=== PATIENT | female | born 1950 | race Caucasian/White ===

== ENCOUNTER 2019-02-03 09:50 | Emergency (ER) | payer OTHER ==
--- NOTE | 2019-02-03 09:52 | PDOC ---
History of Present Illness - General Chief Complaint: Respiratory Stated Complaint: COUGH Time Seen by Provider: 02/03/19 09:52 History Source: Patient Exam Limitations: No Limitations - History of Present Illness Initial Comments: 02/03/19 10:11 HPI 68 YOF with h/o HTN, HLD, COPD presenting with productive cough and congestion x 1 week, worsening over the past 3 days with shortness of breath worse with coughing episodes. +clear sputum; has not tried any medications for the cough. She does have symbicort for maintenance of COPD, but not taking. Unsure if she has albuterol rescue inhaler or been told how to utilize. She was at PMD office, Dr Wu 3 days ago on Sunday, was evaluated and deemed well; following visit she developed progressive respiratory symptoms. Today she started experiencing difficulty catching her breath and subsequent anxiety; but no cp or syncope, dizziness. Denies fever, chills, chest pain, palpitations, dizziness, weakness, N, V, D, abdominal pain, bladder and bowel problems, leg swelling, leg pain, reash. No sick contacts or travel. No known allergens or environmental exposures. No new changes in medications. No suspicious food intake Allergies: None Past Medical History: HTN, HLD, COPD Social history: Lives with family. +tobacco use ppd. No ETOH or drug use. Surgical history: noncontributory Meds: as documented in EMR PMD: Dr Conner Wu Past History - Past Medical History Allergies/Adverse Reactions: Allergies Allergy/AdvReac Type Severity Reaction Status Date / Time No Known Allergies Allergy Verified 02/03/19 09:51 Home Medications: Ambulatory Orders Albuterol 0.083% Nebulizer Evita [Ventolin 0.083% Nebulizer Soln -] 1 neb NEB Q4H PRN #50 vial 02/03/19 Albuterol Sulfate Inhaler - [Ventolin HFA Inhaler -] 2 inh PO Q4H PRN #1 inh Albuterol Sulfate Inhaler - [Ventolin Hfa Inhaler -] 1 - 2 inh PO PRN PRN Budesonide/Formeterol Fumarate [SYMBICORT 160/4.5mcg -] 1 inh IH PRN PRN Losartan Potassium 50 mg PO DAILY 02/03/19 Metoprolol Tartrate 50 mg PO DAILY 02/03/19 Nebulizer [Aeroeclipse II] 1 each ONCE #1 each 02/03/19 Simvastatin 10 mg PO DAILY 02/03/19 predniSONE [Deltasone -] 40 mg PO DAILY 4 Days #8 tablet 02/03/19 Review of Systems - Review of Systems Able to Perform ROS?: Yes Comments:: 02/03/19 10:11 Review of systems Constitutional: no fevers or chills. No sweats or weakness. HEENT: no headache or dizziness. No visual/hearing disturbances. No sore throat or ear pain. No neck pain. +nasal congestion. CVS: no cp or syncope. No palpitations. Resp: +cough, sob, +wheezing. no hemoptysis. Gastrointestinal: no abdominal pain, nausea or vomiting. MUSCULOSKELETAL: No joint pain and swelling. No neck or back pain. Extrem: no leg swelling or pain SKIN: no redness or skin changes, no discharge, no rash. No wounds. Hematologic: no easy bruising/bleeding. NEUROLOGIC: No headache, dizziness, LOC or altered mental status. No weakness, numbness or tingling. Psych: +anxiety Allergic/Immunologic: no allergies All other systems reviewed and negative, or as documented in HPI. 02/03/19 11:25 *Physical Exam - Physical Exam Comments: 02/03/19 10:11 Physical exam: General: Well appearing, awake and alert, NAD. thin appearing. HEENT: NCAT, PERRL, EOMI, clear conjunctiva, anicteric, dry mucus membranes, clear oropharynx, no oral lesions.. Neck: neck supple, FROM Resp: +lip pursing, prolonged expiratory phase, bilaterally decreased breath sounds diffusely with scant and faint expiratory wheezing. CVS: +tachycardia, no murmurs, 2+ peripheral pulses throughout, no peripheral edema Abdomen: soft, NTND, no peritoneal signs. Back: nontender, normal inspection and ROM MSK: no edema, RO x4, ROM intact. No clubbing or cyanosis. normal bulk and tone. Neuro: alert Extrem: no calf tenderness, no leg edema. Skin: warm and well perfused, cap refill <2 sec, normal color Heart Score/ECG Review #1 ECG reviewed & interpreted by me at: 09:55 General ECG Interpretation: Sinus Rhythm, Normal Rate, Normal Intervals Compared to previous ECG there are: Previous ECG unavail 02/03/19 10:51 EKG normal sinus rhythm at 92 bpm, no interval abnormalities, LAD, narrow QRS, ST and T wave segments and morphology normal. Nonspecific T wave abnormalities ED Treatment Course - RADIOLOGY Chest X-Ray Result: No Infiltrates Radiograph Interpretation: 02/03/19 10:46 CXR (2 view): no acute abnormality: no infiltrates, bones appear intact and structures normal alignment, cardiac silhouette within normal limits. no free air under diaphragm, no pneumothorax. hyper inflated lungs Medical Decision Making - Medical Decision Making 02/03/19 10:11 See HPI for details Vital signs reviewed, wnl. no fever, borderline sats 91% on RA, but has COPD with exacerbation, can have 88-92% on RA HR 100, no fever or systemic toxicity, anxious and with copd exac. ddx copd exac, pulm edema, viral syndrome, bronchitis, pneumonia not flu season currently clinically does not appear as PE, no risk factors to suggest etiology, no leg swelling/calf tenderness, no hemoptysis or known malignancy.. alternative etiology is more likely - copd vs bronchitis, defer testing and workup at this time. unlikely cardiac, no cp. no diaphoresis or syncope EKG normal sinus rhythm at 92 bpm, no interval abnormalities, LAD, narrow QRS, ST and T wave segments and morphology normal. Nonspecific T wave abnormalities ED course - duonebs x3, prednisone. feels much improved; repeat VS after full treatments normalized, with bp downtrending, no significant hypoxia as she has copd and allowed for 88-92%, breathing comfortably, lungs with scant wheezing, but improved air movement. no tachypnea. speaking clear sentences.. no cp or sob on reeval. - CXR clear, hyperinflated, no effusion or infiltrate - no abx indicated at this time, likely viral etiology of bronchitis smoking cessation advised supportive care, albuterol use q4-6 hr as needed, hydration and avoid triggers Pt informed of my clinical impression, treatment recommendations and disposition plan. All questions answered to patient's satisfaction and expressed understanding and comfort with this. Reasons for returning to the ED sooner discussed including new or persistent/worsening symptoms with the patient otherwise, follow up with primary care physician. At the time of discharge, the patient is alert, clinically improved, tolerating po and verbalizes understanding of instructions, satisfied with the care received and felt comfortable with the plan. Patient does not suffer from an acute life- threatening medical condition at this time and is safe for outpatient follow- up. 02/03/19 10:47 02/03/19 10:51 02/03/19 11:20 02/03/19 11:25 *DC/Admit/Observation/Transfer Diagnosis at time of Disposition: COPD exacerbation, Acute bronchitis - Discharge Dispostion Disposition: HOME Condition at time of disposition: Good Decision to Admit order: No - Prescriptions Prescriptions: Albuterol 0.083% Nebulizer Evita [Ventolin 0.083% Nebulizer Soln -] 1 neb NEB Q4H PRN #50 vial PRN Reason: cough, wheezing Albuterol Sulfate Inhaler - [Ventolin HFA Inhaler -] 2 inh PO Q4H PRN #1 inh PRN Reason: Cough Nebulizer [Aeroeclipse II] 1 each MC ONCE #1 each predniSONE [Deltasone -] 40 mg PO DAILY 4 Days #8 tablet - Referrals Referrals: Cathy Wu MD [Staff Physician] - - Patient Instructions Printed Discharge Instructions: DI for Chronic Obstructive Pulmonary Disease, DI for Acute Bronchitis Additional Instructions: salt water gargles and warm lemon tea is appropriate as well for soothing qualities for sore throat/cough. minimize spread of infection given contagious nature, and cover your mouth and wash your hands adequately with soap and water. Stay well hydrated and rest. Cool air - walk around outdoors in the evening. May also try hot shower steam. This can alleviate the congestion and cough. smoking cessation advised supportive care, hydration and avoid triggers may also use over the counter mucinex for breaking up the mucus plugging. May use the albuterol inhaler every 4-6 hours as needed for cough and breathing to clear up your airways. you will also be prescribed a nebulizer machine with the solutions to be used similarly every 4 to 6 hours as needed for cough/wheezing, choose one or the other. Return precautions include respiratory distress, difficulty breathing, cyanosis (turning blue), chest pain, lethargy, confusion, dehydration, high fevers or pain. - Post Discharge Activity
[2019-02-03 10:03] VITALS: TEMP 98.2; BMI 19.3
[2019-02-03] MEDS ORDERED: predniSONE 20 MG TABLET (UD) PO ONE (10:04)
[2019-02-03] MEDS ORDERED: predniSONE 10 MG TABLET (UD) ONE (10:08)
[2019-02-03] MEDS ORDERED: predniSONE 20 MG TABLET (UD) ONE (10:08)
[2019-02-03] MEDS ORDERED: ALBUTEROL SO4 2.5/IPRATROPIUM 0.5 INH SOL 3 ML VIAL.NEB. NEB ONE (10:08)
[2019-02-03] MEDS: ALBUTEROL SO4 2.5/IPRATROPIUM 0.5 INH SOL 3 ML VIAL.NEB. NEB SCH ×4 (10:13→10:52)
[2019-02-03 11:18] VITALS: BP 156/100; PULSE 101
--- NOTE | 2019-02-04 12:14 | EKG ---
Test Reason : Blood Pressure : / mmHG Vent. Rate : 092 BPM Atrial Rate : 092 BPM P-R Int : 186 ms QRS Dur : 106 ms QT Int : 362 ms P-R-T Axes : 086 -76 091 degrees QTc Int : 447 ms NORMAL SINUS RHYTHM BIATRIAL ENLARGEMENT LEFT AXIS DEVIATION ANTEROSEPTAL INFARCT , AGE UNDETERMINED ABNORMAL ECG NO PREVIOUS ECGS AVAILABLE Confirmed by MD Zan, Joe ([id number]) on 02/04/2019 12:13:38 PM Referred By: DIOR PRIETO Confirmed By:Joe Zuluaga MD
== END 2019-02-03 11:41 | disposition home or self-care (01) ==
LOC: FER 09:50
PROC: 3E0F7GC Introduction of Other Therapeutic Substance into Respiratory Tract, Via Natural or Artificial Opening (ICD-10-PCS; principal; 2019-02-03)
DX: J40 Bronchitis, not specified as acute or chronic (principal); J44.1 Chronic obstructive pulmonary disease with (acute) exacerbation; I10 Essential (primary) hypertension; E78.5 Hyperlipidemia, unspecified
CPT/HCPCS: 71045-TC-FY; 93005; 94640; 99282-25